=== PATIENT | male | born 1975 | race Two or more races ===

== ENCOUNTER 2017-01-25 18:08 | Emergency (ER) | payer SELFPAY ==
--- NOTE | ~2017-01-25 | EKG ---
PATIENT: DARBY OBRIEN UNIT #: [id number] Ventricular Rate: 75 BPM Atrial Rate: 75 BPM P-R Interval: 166 ms QRS Duration: 106 ms Q-T Interval: 386 ms QTC Calculation(Bezet): 431 ms P Bloomer: 11 degrees Calculated R Bloomer: -25 degrees Diagnosis Line: Normal sinus rhythm Diagnosis Line: Normal ECG Diagnosis Line: Diagnosis Line: Confirmed by JUSTIN MABRY MD ([id number]) on 01/28/2017 Diagnosis Line: 4:08:34 PM INTERPRETING MD: CLOTILDE CHOE
--- NOTE | ~2017-01-25 | CR72 ---
[facility] A Service of [facility] & [facility] RADIOLOGY TEXT RESULTS PATIENT: DARBY OBRIEN LOCATION: [facility] : [birth year] UNIT #: [id number] AGE: [address]: Samira Shipman MD SEX: M ORDER DR: [id number] [facility] [address] [facility] [place], [place] [address] [id number] E MR#: [id number] Acc #: [id number] NAME: DARBY OBRIEN : 1975 SEX: M STUDY DATE/TIME: 01/25/2017 21:36 UNIT: [facility] ROOM: STUDY DESCRIPTION: CR Chest Single View Portable Attending Physician: Samira Shipman M.D. Ordering Physician: Samira Shipman M.D. MEDICAL IMAGING REPORT This report is preliminary unless electronic signature is present EXAM Portable chest HISTORY Chest pain and seizure. TECHNIQUE Frontal view of the chest. COMPARISON STUDIES None. FINDINGS Mild cardiomegaly. There is no dense consolidation, pleural fluid or pneumothorax. IMPRESSION Mild cardiomegaly. Lungs are clear. Dictated by... Edouard Chambers M.D. THIS IS AN ELECTRONICALLY VERIFIED REPORT Edouard Chambers M.D. at 01/26/2017 3:08 PM EED/pcl TD: 01/25/2017 22:52 JOB #: [id number] MEDICAL IMAGING REPORT Page 1 of 1 COPY
[2017-01-25 18:30] LABS: BASOPHIL# 0.1 X10e3 (0-0.3); EOSINOPHIL# 0.2 X10e3 (0-0.7); EOSINOPHIL% 3.6 % (0.0-7.0); HEMOGLOBIN 15.5 gm/dL (13.0-16.0); LYMPHOCYTE# 2.4 X10e3 (1.0-3.5); LYMPHOCYTE% 35.6 % (17.0-45.0); MEAN CELL VOLUME 92.3 FL (83-96); MEAN CORPUSCULAR HGB CONC 33.6 g/dL (30-36); MEAN PLATELET VOLUME 9.1 FL (6.5-11.5); MONOCYTE# 0.5 X10e3 (0-1.0); MONOCYTE% 7.1 % (3.0-12.0); NEUTROPHIL# 3.6 X10e3 (1.5-7.1); NEUTROPHIL% 52.7 % (40-75); PLATELET COUNT 175 X10e3 (140-420); RED BLOOD COUNT 4.99 X10e (3.90-5.60); WHITE BLOOD COUNT 6.8 X10e3 (4.0-10.5)
[2017-01-25 18:33] LABS: DIFF IND NO
[2017-01-25 18:48] LABS: POC - CKMB <1.0 ng/mL (0.0-7.9); POC - TROPONIN <0.05 ng/mL (<=0.05)
[2017-01-25 19:01] LABS: BILIRUBIN, DIRECT 0.1 mg/dL (0.0-0.2); BILIRUBIN,INDIRECT 1.2 mg/dL (0.0-0.9); BILIRUBIN,TOTAL 1.3 mg/dL (0.2-2.0); BUN/CREATININE RATIO 13.33; CALCIUM SERUM 9.3 mg/dL (8.4-10.2); CREATININE SERUM 0.9 mg/dL (0.6-1.4); GLOM FILT RATE Estimated 106.5 mL/min (>60); POTASSIUM 3.7 mmol/L (3.5-5.1); PROTEIN TOTAL SERUM 8.3 g/dL (6.0-8.3)
[2017-01-25 20:07] LABS: POC - CKMB <1.0 ng/mL (0.0-7.9); POC - TROPONIN <0.05 ng/mL (<=0.05)
== END 2017-01-25 22:45 | disposition home or self-care (01) ==
LOC: CED 18:08
DX: R07.89 Other chest pain (principal); I10 Essential (primary) hypertension
CPT/HCPCS: 36415; 71010; 80048; 80076; 82553; 83690; 84484; 85025; 93005; 96374; 99284; J1885